=== PATIENT | male | born 1955 | race Caucasian/White ===

== ENCOUNTER 2018-10-15 12:04 | Inpatient (IN) ==
[2018-10-15 12:52] LABS: HEMATOCRIT 46.8 % (42.0-52.0); HEMOGLOBIN 14.9 g/dL (14.0-18.0); MCH 30.4 PG (27-31); MCHC 31.8 g/dL (33-37); MCV 95.5 FL (81-99); MPV 13.3 FL (7.4-10.4); RBC 4.9 XMIL (4.7-6.1); WBC 13.5 X1000 (4.8-10.8)
[2018-10-15 12:56] LABS: BILIRUBIN URINE NEGATIVE (NEGATIVE); BLOOD URINE TRACE (NEGATIVE); COLOR STRAW; GLUCOSE URINE >1000 mg/dL (NEGATIVE); KETONE URINE NEGATIVE (NEGATIVE); LEUKOCYTES URINE NEGATIVE (NEGATIVE); NITRITE URINE NEGATIVE (NEGATIVE); PROTEIN URINE NEGATIVE (NEGATIVE); SP GRAVITY URINE 1.029; TURBIDITY URINE CLEAR (CLEAR); URINE SOURCE CLEAN CATCH; UROBILINOGEN URINE NORMAL (NORMAL)
[2018-10-15 12:57] LABS: UR EPITHELIAL CELLS <10 /HPF (<10); URINE BACTERIA NEGATIVE /HPF; URINE RBC <10 /HPF (<10); URINE WBC <10 /HPF (<10)
[2018-10-15 13:01] LABS: ACETONE SERUM NEGATIVE (NEGATIVE)
[2018-10-15] MEDS ORDERED: NS 1,000 ML IV ONE ×2 (13:05→13:57)
[2018-10-15 13:07] LABS: UR AMPHETAMINES QUAL NONE DETECTED (NONE DETECT); UR BARBITUATES QUAL NONE DETECTED (NONE DETECT); UR BENZODIAZEPIN QUAL NONE DETECTED (NONE DETECT); UR CANNABINOIDS QUAL NONE DETECTED (NONE DETECT); UR COCAINE QUAL NONE DETECTED (NONE DETECT); UR METHADONE QUAL NONE DETECTED (NONE DETECT); UR OPIATES QUAL NONE DETECTED (NONE DETECT); UR OXYCODONE QUAL NONE DETECTED (NONE DETECT); UR PCP QUAL NONE DETECTED (NONE DETECT)
[2018-10-15 13:25] LABS: BE -3.7 mmoll (-2.0-2.0); BLOOD TYPE VENOUS; HCO3-(ACT) 21.4 mmoll (22-27); PCO2(98.6) 47 mmHg (40-60); PO2(98.6) 41 mmHg (30-55); SAMPLE BLOOD; SAO2 78.7 % (40.0-85.0)
[2018-10-15 13:26] LABS: MAGNESIUM 1.7 mg/dL (1.5-2.7); PHOSPHORUS 3.4 mg/dL (2.7-4.5)
[2018-10-15 13:33] LABS: AGAP 16; ALB/GLOB RATIO 1.8; ALBUMIN 4.5 g/dL (3.5-5.0); ALKALINE PHOSPHATASE 72 U/L (32-122); BUN 56 mg/dL (8-22); CALCIUM 10.2 mg/dL (8.8-10.2); CHLORIDE 87 mmol/L (98-107); CK PROFILE 469 U/L (24-204); COSMO 325; CREATININE 2.5 mg/dL (0.7-1.2); ESTIMATED GFR 26; GOT 22 U/L (10-34); GPT 30 U/L (10-44); MAGNESIUM 1.8 mg/dL (1.5-2.7); PHOSPHORUS 3.4 mg/dL (2.7-4.5); SODIUM 125 mmol/L (136-145); TCO2 22 mmol/L (25-35); TOTAL BILIRUBIN 0.68 mg/dL (0.20-1.00)
[2018-10-15 13:39] LABS: POTASSIUM 6.8 mmol/L (3.5-5.1)
[2018-10-15 13:40] LABS: GLUCOSE > 1500 mg/dL (70-104)
[2018-10-15] MEDS ORDERED: HUMULIN R IV ONE ×2 (13:56→16:15)
[2018-10-15 14:00] LABS: CK INDEX 1.7 (0.0-2.5); CK-MB 7.74 ng/mL (0.0-5.0)
--- NOTE | 2018-10-15 14:14 | PROVIDER DOCUMENTATION ---
This chart was entered by Mayela Lane Scribe, acting as scribe for Anna Rothman MD. HPI-General Adult - General Chief Complaint: DKA ALERT Stated Complaint: BLOOD SUGAR HIGH Time Seen by Provider: 10/15/18 12:11 Source: patient Allergies/Adverse Reactions: Patient Allergies Allergy/AdvReac Type Severity Reaction Status Date / Time No Known Allergies Allergy Verified 08/03/12 09:20 Home Medications: Home Medication List Medication Instructions Recorded Confirmed Last Taken Type Calcium Citrate/Vitamin D 1 each PO DAILY 08/03/12 08/03/12 08/03/12 History [Citracal + D] Docosahexanoic Acid/Epa [Fish Oil 1 each PO QAM 08/03/12 08/03/12 08/03/12 History Softgel] Folic Acid 0.4 mg PO DAILY 08/03/12 08/03/12 08/03/12 History Glucosamine 500 mg PO QAM 08/03/12 08/03/12 08/03/12 History Atorvastatin Calcium [Lipitor] 80 mg PO DAILY #0 tablet 08/04/12 Unknown Rx Clopidogrel [Plavix] 75 mg PO DAILY #0 tablet 08/04/12 Unknown Rx - History of Present Illness -Gen Adult Nature of Presenting Problems: Patient is a 63 year old male who presents with increase in thirst, nausea, v omiting and weakness. Patient states seeing PCP this morning and was informed his blood sugar was greater than 1000. Denies history of diabetes. Location of Pain/Injury: reports: none Pain Radiation: reports: no radiation Quality of Pain: reports: none Severity: reports: mild Onset/Duration: reports: gradual Timing: reports: still present, getting worse Context/Activities at Onset: reports: light activity Modifying Factors: improves with: nothing Associated Symptoms: reports: nausea, vomiting, weakness, other (increase in thirst) Similar Symptoms Previously?: Yes Recently seen or treated by another doctor?: No Review of Systems - Adult - REVIEW OF SYSTEMS - ADULT Constitutional: reports: no symptoms reported. denies: chills, fever, fatique Eyes: reports: no symptoms reported Ears, Nose, Mouth & Throat: reports: no symptoms reported Cardiovascular: reports: no symptoms reported Respiratory: reports: no symptoms reported Gastrointestinal: reports: see HPI, nausea, vomiting. denies: abdominal pain, diarrhea Genitourinary: reports: no symptoms reported Musculoskeletal: reports: see HPI, muscle weakness. denies: back pain, muscle aches, neck pain Integumentary: reports: no symptoms reported Neurological: reports: no symptoms reported Psychiatric: reports: no symptoms reported Endocrine: reports: see HPI, increased thirst. denies: change in skin pigment, polyuria Hematologic/Lymphatic: reports: no symptoms reported Allergic/Immunologic: reports: no symptoms reported All Other Systems: Reviewed and Negative Past History - Adult - PAST MEDICAL HISTORY-ADULT Review of Records: reports: Old Records Reviewed, Nursing Assessment Review, Medications Reviewed, Social history reviewed & non-contributory. Major Childhood Illnesses: reports: denies history Cardiovascular: reports: HTN, hyperlipidemia, [place] Respiratory: reports: denies history Gastrointestinal: reports: denies history Obstetrical/Gynecological: reports: denies history Genitourinary: reports: denies history Musculoskeletal: reports: denies history Neurological: reports: denies history Psychiatric: reports: denies history Endocrine/Immune: reports: denies history Other Conditions: reports: denies history - PRIOR SURGERIES/PROCEDURES Surgical/Procedure History: reports: reviewed, not pertinent, cardiac stent - IMMUNIZATION STATUS Childhood Immunizations: See Nurse Assessment Flu Vaccine: See Nurse Assessment - FAMILY HISTORY Family History: reviewed, not pertinent - SOCIAL HISTORY Smoking: denies Substance Use: denies Living Situation: family Physical Exam-General - PHYSICAL EXAM-ADULT Initial Vital Signs Reviewed: Yes - CONSTITUTIONAL General Appearance: alert, no apparent distress. negative: lethargic, slow to respond - HEAD, EARS, NOSE, MOUTH & THROAT HENMT: other (dry mucous membranes). negative: angioedema, hearing deficit - RESPIRATORY Respiratory: chest non-tender, lungs clear, normal breath sounds. negative: crackles, stridor, wheezing - CARDIOVASCULAR Cardiovascular: normal peripheral pulses, regular rate, rhythm. negative: tachycardia, systolic murmur - GASTROINTESTINAL (ABDOMEN) Abdominal Exam: normal bowel sounds, non tender, soft. negative: guarding, rebound - MUSCULOSKELETAL Extremity: non-tender, normal inspection. negative: deformity, erythema, swelling - SKIN Integumentary: normal color, normal turgor, warm/dry. negative: cyanosis, ecchymosis, erythema, jaundice - NEUROLOGIC Neurologic: grossly normal. negative: aphasia, facial droop - PSYCHIATRIC Psych/Mental Status: normal mood/affect, oriented x 3. negative: anxious, paranoid Progress - PLAN OF CARE/RESULTS Progress/Plan/Lab Results: Vital Signs - 8 hr 10/15/18 12:05 Temperature 98.6 F Pulse Rate 83 Respiratory Rate 20 Blood Pressure 144/84 O2 Sat by Pulse Oximetry 93 L Laboratory Results - last 24 hr 10/15/18 10/15/18 10/15/18 12:27 12:27 12:27 WBC 13.50 H RBC 4.90 Hgb 14.9 Hct 46.8 MCV 95.5 MCH 30.4 MCHC 31.8 L RDW Std Deviation 12.0 Plt Count 302 MPV 13.3 H Troponin T Plasma Lactate 3.2 H Urine Source Urine Color Urine Turbidity Urine pH Ur Specific [place] Urine Protein Ur Glucose (Stick) Ur Ketones (Stick) Urine Blood Urine Nitrite Urine Bilirubin Urobilinogen Dipstick Urine Leukocytes Urine WBC (Auto) Urine RBC (Auto) U Epithel Cells (Auto) Urine Bacteria (Auto) Urine Opiates Screen Ur Oxycodone Screen Ur Methadone, Qual Ur Barbiturates Screen Ur Phencyclidine Scrn Ur Amphetamines Screen U Benzodiazepines Scrn Urine Cocaine Screen U Cannabinoids Screen Acetone Level NEGATIVE 10/15/18 10/15/18 10/15/18 12:27 12:51 12:51 WBC RBC Hgb Hct MCV MCH MCHC RDW Std Deviation Plt Count MPV Troponin T 0.026 Plasma Lactate Urine Source CLEAN CATCH Urine Color STRAW Urine Turbidity CLEAR Urine pH 5.0 Ur Specific [place] 1.029 Urine Protein NEGATIVE Ur Glucose (Stick) >1000 A Ur Ketones (Stick) NEGATIVE Urine Blood TRACE A Urine Nitrite NEGATIVE Urine Bilirubin NEGATIVE Urobilinogen Dipstick NORMAL Urine Leukocytes NEGATIVE Urine WBC (Auto) <10 Urine RBC (Auto) <10 U Epithel Cells (Auto) <10 Urine Bacteria (Auto) NEGATIVE Urine Opiates Screen NONE DETECTED Ur Oxycodone Screen NONE DETECTED Ur Methadone, Qual NONE DETECTED Ur Barbiturates Screen NONE DETECTED Ur Phencyclidine Scrn NONE DETECTED Ur Amphetamines Screen NONE DETECTED U Benzodiazepines Scrn NONE DETECTED Urine Cocaine Screen NONE DETECTED U Cannabinoids Screen NONE DETECTED Acetone Level Orders Category Date Time Status Cardiac Monitoring DIRECTED Care 10/15/18 12:14 Active FSBS/Accucheck Result Q1H Care 10/15/18 12:14 Active If symptomatic Hypoglycemia As Ordered Care 10/15/18 12:14 Active Notify physician if: ORDERED Care 10/15/18 12:14 Active ACETONE SERUM [CHEM] Stat Lab 10/15/18 12:27 Results BASIC METABOLIC PANEL [CHEM] Lab 10/15/18 12:40 Ordered BASIC METABOLIC PANEL [CHEM] Q4H Lab 10/15/18 12:27 Results CBC WITH NO DIFF [HEME] Stat Lab 10/15/18 12:27 Completed CK PROFILE [SP CHEM] Stat Lab 10/15/18 12:27 Results COMPREHENSIVE METABOLIC PANEL [CHEM] Stat Lab 10/15/18 12:27 Results LACTATE, PLASMA [CHEM] Stat Lab 10/15/18 12:27 Completed MAGNESIUM [CHEM] Lab 10/15/18 12:40 Ordered MAGNESIUM [CHEM] Q4H Lab 10/15/18 12:27 Results MAGNESIUM [CHEM] Stat Lab 10/15/18 12:27 Received PHOSPHORUS [CHEM] Lab 10/15/18 12:27 Received PHOSPHORUS [CHEM] Lab 10/15/18 12:40 Ordered PHOSPHORUS [CHEM] Stat Lab 10/15/18 12:27 Results TROPONIN T Stat Lab 10/15/18 12:27 Completed URINALYSIS W/POSS RFLX CULT [URINALYSIS] Stat Lab 10/15/18 12:51 Completed URINE DRUG SCREEN Stat Lab 10/15/18 12:51 Completed VENOUS BLOOD GAS [RESP] Stat Lab 10/15/18 13:05 Uncollected 0.9% Sodium Chloride Inj [Ns] 1,000 ml Med 10/15/18 13:05 Active IV 999 mls/hr Result Diagrams: 10/15/18 12:27 10/15/18 12:27 - EKG 1 Time of EKG reading by physician:: 12:32 EKG Read and Signed by:: Anna Rothman EKG Interpretation (*Must complete 3 of following elements*): Abnormal Rate: 85 Rhythm: normal sinus rhythm [place]: normal QRS: LVH (with repolarization abnormality.) DC Interval: normal Comments: cannot rule out septal infarct, age undetermined - CONSULTS/PCP/HOSPITALIST Notification #1 *Consult/PCP/Hospitalist*: MAYANK Fernandez for Hospitalist Time Discussed: 14:07 Reason/Comments: Dr. Rothman consulted with Rebecca about patient. Consult Disposition: Will see in ED, Admit Departure - Departure Date of Disposition Decision: 10/15/18 Time of Disposition Decision: 14:07 DIAGNOSIS: Diabetic hyperosmolar non-ketotic state Disposition: ADMITTED INPATIENT 09 Certified Medical Emergency: Emergent Condition: Stable Referrals and Follow-Ups: Keo Worthington MD [Primary Care Provider] - - Critical Care Note This patient required my direct & personal management of CC.: Yes Total Time (mins): 31 Critical Care Statement: This patient required my direct personal management to treat or rule out processes, the absence of which, could potentiallly result in sudden, clinically significant life or limb threatening deterioration. Attestation - Physician/ CONNOR Attestation The physician spent face to face time with patient:: Yes Advanced Practice Provider documentation review:: Supervising physician onsite and consulted in the evaluation and care of this patient. The physician did have a face to face encounter with the patient. This chart was documented by the indicated scribe, (Mayela Lane Scribe) and accu rately reflects the services I performed and decisions made by me, Anna Rothman MD, as attested by the provider's signature.
--- NOTE | 2018-10-15 14:17 | EKG Report ---
Test Performed on : 10/15/2018 12:32:45 PM Test Reason : ED. NO EKG ORDER FOR MUSE Blood Pressure : / mmHG Vent. Rate : 085 BPM Atrial Rate : 085 BPM P-R Int : 164 ms QRS Dur : 090 ms QT Int : 366 ms P-R-T Axes : 036 -07 067 degrees QTc Int : 435 ms Normal sinus rhythm. Left ventricular hypertrophy with repolarization abnormality Cannot rule out Septal infarct (cited on or before 03-AUG-2012) Abnormal ECG When compared with ECG of 03-AUG-2012 09:14, No significant change was found Unconfirmed Result
[2018-10-15] MEDS ORDERED: ROCEPHIN IV ONE (14:29)
[2018-10-15] MEDS ORDERED: ZOFRAN ODT PO PRN (15:29)
[2018-10-15] MEDS ORDERED: NS 50 ML ONE (15:54)
[2018-10-15] MEDS ORDERED: HUMULIN R 100 UNIT in NS 100 ML IV SCH (16:00)
[2018-10-15 16:08] LABS: CALCIUM 9.7 mg/dL (8.8-10.2); CREATININE 2.5 mg/dL (0.7-1.2); MAGNESIUM 1.6 mg/dL (1.5-2.7); POTASSIUM 6.5 mmol/L (3.5-5.1)
[2018-10-15] MEDS ORDERED: POTASSIUM CHLORIDE 20% LIQUID PO PRN (16:15)
[2018-10-15] MEDS ORDERED: HUMULIN R 100 UNIT in NS 99 ML IV SCH ×2 (16:15→19:00)
[2018-10-15] MEDS ORDERED: SODIUM BICARBONATE 8.4% 100 MEQ in STERILE WATER INJ. 500 ML IV PRN (16:15)
[2018-10-15] MEDS ORDERED: ZOFRAN IV PRN (16:15)
[2018-10-15] MEDS ORDERED: D50W SYRINGE IV PRN (16:15)
[2018-10-15] MEDS ORDERED: SODIUM PHOSPHATE 30 MMOL in D5W 250 ML IV PRN (16:15)
[2018-10-15] MEDS ORDERED: POTASSIUM CHLORIDE 10% LIQUID PO PRN (16:15)
[2018-10-15] MEDS ORDERED: POTASSIUM CHLORIDE 40 MEQ/SWI 40 MEQ/100 ML IVPB IV PRN (16:15)
[2018-10-15] MEDS ORDERED: POTASSIUM CHLORIDE 20 MEQ/SWI 20 MEQ/100 ML IVPB IV PRN (16:15)
[2018-10-15] MEDS ORDERED: ZOFRAN PO PRN (16:15)
[2018-10-15] MEDS: NS 1,000 ML IV SCH ×4 (16:35→18:26)
[2018-10-15] MEDS: D5 NS 1,000 ML IV SCH (17:40)
--- NOTE | 2018-10-15 18:21 | HISTORY AND PHYSICAL ---
CHIEF COMPLAINT: My blood sugar is high. HISTORY OF PRESENT ILLNESS: This is a 63-year-old gentleman with a history of hypertension, high cholesterol and diabetes mellitus. He presented to the emergency room after being evaluated his primary care physician Dr. Worthington's office being found to have a blood sugar greater than 1000. Patient presented for evaluation to his PCP complaining of 10 days of nausea, vomiting and generalized weakness. He reports having rosuvastatin increased from 20 to 40 mg 12 days ago and stated symptoms started within 48 hours of increasing the dose. Patient denies any prior episodes of DKA or [*] stating that blood sugars have averaged in the 130s primarily. He states his hemoglobin A1c he feels is around 6. On arrival to the emergency room he was found to have a blood sugar greater than 1500 with potassium 6.8, sodium 125. He does have a CO2 of 22. He was acetone negative. PAST MEDICAL HISTORY: 1. Diabetes mellitus type 2. 2. Hypertension. 3. Coronary artery disease status post stent x1. 4. High cholesterol. PAST SURGICAL HISTORY: He denied. SOCIAL HISTORY: He denies alcohol, tobacco or illicit drug use. ALLERGIES: No known drug allergies. HOME MEDICATIONS: List be obtained by the nursing staff and once verified will be restarted as appropriate. REVIEW OF SYSTEMS: Discussed patient with pertinent positives being generalized weakness, nausea, vomiting, increased thirst. He denies any syncope, dizziness, any chest pain, any palpitations, any black or bloody vomitus or stools, any hematuria, dysuria, urgency. PHYSICAL EXAMINATION: GENERAL: This is a 63-year-old gentleman who is sitting up in the bed in no distress. VITAL SIGNS: Blood pressure is 111/93 with a heart rate of 92, respirations 19, temperature is 98.6, O2 saturation 95-97% on room air. HEENT: Pupils are equal, round, react to light. EOMs are intact. Sclerae anicteric. Head is normocephalic, atraumatic. Mucous membranes are dry. NECK: Supple, trachea midline. CARDIOVASCULAR: Regular rate and rhythm. S1 and S2 appreciated. He has slight pretibial edema bilateral, calves nontender bilateral with peripheral pulses palpable x4 extremities. PULMONARY: Breath sounds are clear with no increased work of breathing noted. Chest rise and fall symmetric respiration. Chest wall is nontender to palpation. GASTROINTESTINAL: Abdomen soft, nontender, nondistended. Bowel sounds in all 4 quadrants. GENITOURINARY: He has no CVA nor suprapubic tenderness. NEUROLOGIC: He is alert, oriented x3. SKIN: Warm and dry. LABS: WBC is 125 with potassium 6.8, CO2 of 22, anion gap of 16 with a BUN of 56, creatinine 2.5, glucose greater than 1500, magnesium is 1.8, WBC is 13.5 with hemoglobin 14.9, hematocrit 46.8, platelets of 302,000. Urine drug screen reveals none detected with acetone negative. Urinalysis is essentially negative. ASSESSMENT AND PLAN: 1. Diabetic hyperosmolar nonketotic state. 2. Diabetes mellitus type 2. 3. Hypertension. 4. High cholesterol. 5. History of coronary artery disease status post percutaneous coronary intervention. 6. Hyponatremia. 7. Hyperkalemia. 8. Acute kidney injury. PLAN: The patient will be transferred to [facility] ICU. He will be placed on DKA protocol. Will hold his home medications at present. Will start diabetic diet as tolerated. We will identify his home medications and continue these as appropriate. Labs per DKA protocol, will recheck a CBC in the morning with a.m. labs. Further treatments pending hospital course. Dictated by MAYANK Kumar for Dany Baez MD cc: MAYANK Kumar
[2018-10-15] MEDS ORDERED: FIBERCON PO SCH (21:00)
[2018-10-15 21:04] LABS: AGAP 17; CHLORIDE 100 mmol/L (98-107); POTASSIUM 5.2 mmol/L (3.5-5.1); SODIUM 135 mmol/L (136-145); TCO2 19 mmol/L (25-35)
[2018-10-15 21:05] LABS: BUN 49 mg/dL (8-22); CALCIUM 9.1 mg/dL (8.8-10.2); COSMO 324; CREATININE 2.1 mg/dL (0.7-1.2); MAGNESIUM 1.6 mg/dL (1.5-2.7); PHOSPHORUS 1.9 mg/dL (2.7-4.5)
[2018-10-15 21:06] LABS: GLUCOSE 844 mg/dL (70-104)
[2018-10-15] MEDS: FIBERCON PO SCH (21:26)
[2018-10-15] MEDS: COZAAR PO SCH (21:26)
[2018-10-15] MEDS: LOPRESSOR PO SCH (21:26)
[2018-10-16 00:30] LABS: CALCIUM 9.2 mg/dL (8.8-10.2); CREATININE 1.9 mg/dL (0.7-1.2); MAGNESIUM 1.6 mg/dL (1.5-2.7); PHOSPHORUS 2.4 mg/dL (2.7-4.5)
[2018-10-16] MEDS ORDERED: NS 100 ML ONE (00:55)
[2018-10-16] MEDS ORDERED: HUMULIN R (PARKWAY) ONE (00:57)
[2018-10-16] MEDS: MAGNESIUM SULFATE 2 GM/S.W.I. 2 GM/50 ML IVPB IV PRN ×2 (02:38→06:04)
[2018-10-16] MEDS: NS 1,000 ML IV SCH (02:38)
[2018-10-16 05:16] LABS: BASO# 0.05 X1000 (0.0-0.2); BASO% 0.5 % (0.0-0.8); EOS# 0.29 X1000 (0.0-0.7); EOS% 2.7 % (0.0-10.0); HEMATOCRIT 29.2 % (42.0-52.0); IMM GRAN# 0.03 X1000 (0.0-0.04); IMM GRAN% 0.3 % (0.0-0.5); LYMPH# 2.61 X1000 (1.2-3.4); LYMPH% 23.9 % (20.5-51.1); MCH 30.6 PG (27-31); MCHC 34.9 g/dL (33-37); MCV 87.7 FL (81-99); MONO# 0.91 X1000 (0.11-0.59); MONO% 8.3 % (1.7-9.3); MPV 11.5 FL (7.4-10.4); NEUT# 7.04 X1000 (1.4-6.5); NEUT% 64.3 % (42.2-75.2); PLT 193 X1000 (130-400); RBC 3.33 XMIL (4.7-6.1); RDW 11.6 % (11.5-14.5); WBC 10.93 X1000 (4.8-10.8)
[2018-10-16 05:21] LABS: HEMOGLOBIN 10.2 g/dL (14.0-18.0)
[2018-10-16] MEDS: D5 NS 1,000 ML IV SCH ×2 (05:34→12:23)
[2018-10-16 05:37] LABS: CALCIUM 7.2 mg/dL (8.8-10.2); CREATININE 1.4 mg/dL (0.7-1.2); MAGNESIUM 1.6 mg/dL (1.5-2.7); PHOSPHORUS 2.5 mg/dL (2.7-4.5); POTASSIUM 3.2 mmol/L (3.5-5.1)
[2018-10-16 07:23] LABS: HEMOGLOBIN A1C 12.8 % (4.8-6.0)
[2018-10-16] MEDS: FIBERCON PO SCH ×2 (09:42→22:10)
[2018-10-16] MEDS: PLAVIX PO SCH (09:42)
[2018-10-16] MEDS: COZAAR PO SCH ×2 (09:42→22:10)
[2018-10-16] MEDS: LOPRESSOR PO SCH ×2 (09:42→22:10)
[2018-10-16] MEDS: HUMALOG (PARKWAY) SUBQ SCH ×5 (12:27→22:10)
[2018-10-16] MEDS ORDERED: MAGNESIUM SULFATE 2 GM/S.W.I. 2 GM/50 ML IVPB IV ONE (15:22)
[2018-10-16] MEDS ORDERED: KLOR-CON PO ONE (15:23)
[2018-10-16] MEDS: GLUCOPHAGE XR PO SCH (18:12)
[2018-10-16 18:53] LABS: CALCIUM 8.9 mg/dL (8.8-10.2); CREATININE 1.9 mg/dL (0.7-1.2); POTASSIUM 5.2 mmol/L (3.5-5.1)
--- NOTE | 2018-10-16 23:28 | PROGRESS NOTE ---
DATE: 10/16/2018 SUBJECTIVE: Patient notes he feels tremendously better. Denies any nausea, vomiting. Denies any abdominal pain. Denies any fevers or chills. OBJECTIVE: Vital signs: Temp 98, pulse 60, respiratory 18, BP 97/61. General: The patient is very pleasant to talk with. He is in no distress. HEENT: Normocephalic. Neck: Supple. Cardiovascular: Regular rate. Chest: Clear. Abdomen: Soft. Extremities: Moves all extremities. ASSESSMENT: 1. Diabetic hyperosmolar nonketotic state, resolved. 2. Type 2 diabetes with likely poor home control, as he is only on metformin at home and his blood sugars were 1300. It would be unlikely that metformin alone will be enough to control his blood sugar. 3. Hypertension. 4. High cholesterol. 5. Hyponatremia, resolved. Currently with hypernatremia. 6. Acute kidney injury, resolved. PLAN: At this point, we will stop his insulin drip. We will not restart metformin immediately as concern that may cause him to have nausea and not be able to eat. We will place him on sliding scale insulin. We will restart his metformin as he is starting to eat. We will follow his blood sugars. We will move him to the floor. Further orders as needed. cc: Burt Haider MD
[2018-10-17] MEDS: HUMALOG (PARKWAY) SUBQ SCH ×2 (02:28→06:19)
[2018-10-17 07:19] LABS: BASO# 0.05 X1000 (0.0-0.2); BASO% 0.5 % (0.0-0.8); EOS% 2.8 % (0.0-10.0); HEMATOCRIT 36.7 % (42.0-52.0); HEMOGLOBIN 12.8 g/dL (14.0-18.0); IMM GRAN# 0.05 X1000 (0.0-0.04); IMM GRAN% 0.5 % (0.0-0.5); LYMPH# 3.56 X1000 (1.2-3.4); LYMPH% 32.7 % (20.5-51.1); MCH 30.5 PG (27-31); MCHC 34.9 g/dL (33-37); MCV 87.4 FL (81-99); MONO# 0.63 X1000 (0.11-0.59); MONO% 5.8 % (1.7-9.3); MPV 12.3 FL (7.4-10.4); NEUT# 6.29 X1000 (1.4-6.5); NEUT% 57.7 % (42.2-75.2); PLT 196 X1000 (130-400); RDW 11.9 % (11.5-14.5); WBC 10.88 X1000 (4.8-10.8)
[2018-10-17 08:06] VITALS: BP 116/74
[2018-10-17 08:16] LABS: ALBUMIN 3.4 g/dL (3.5-5.0); CALCIUM 8.3 mg/dL (8.8-10.2); CREATININE 1.4 mg/dL (0.7-1.2); MAGNESIUM 1.9 mg/dL (1.5-2.7); POTASSIUM 4.7 mmol/L (3.5-5.1); TOTAL BILIRUBIN 0.4 mg/dL (0.20-1.00); TOTAL PROTEIN 5.8 g/dL (6.3-8.3)
[2018-10-17 08:29] LABS: HEMOGLOBIN A1C 12.3 % (4.8-6.0)
[2018-10-17] MEDS ORDERED: COZAAR PO SCH (09:00)
[2018-10-17] MEDS ORDERED: JANUVIA PO SCH (09:00)
[2018-10-17] MEDS: PLAVIX PO SCH (09:35)
[2018-10-17] MEDS: LOPRESSOR PO SCH (09:35)
[2018-10-17] MEDS: FIBERCON PO SCH (09:35)
[2018-10-17] MEDS: GLUCOPHAGE XR PO SCH (09:35)
--- NOTE | 2018-10-17 13:25 | DISCHARGE SUMMARY ---
ADMISSION DATE: 10/15/2018 DISCHARGE DATE: 10/17/2018 CONSULTATIONS: Dietitian. PERTINENT PROCEDURES: EKG, normal sinus rhythm with LVH, 85 beats per minute. QTc was 435. DISCHARGE DIAGNOSIS: 1. Diabetic hyperosmolar non ketotic state, resolved. 2. Type 2 diabetes with likely poor home control. His hemoglobin A1c is 12.8. He was only on metformin at home and his blood sugars were 1300. We did add Januvia to his regimen. He will have a dietitian consult before discharge. 3. Hypertension. Continue home medications. 4. Hyperlipidemia. Continue home medications. 5. Hyponatremia, resolved. 6. Hypernatremia, resolved. 7. Acute kidney injury, resolved. HOSPITAL COURSE: Briefly, Mr. Diaz is a 63-year-old male with a history of hypertension, hypercholesterol, and diabetes mellitus type 2 on metformin only, who presented to the ED after he was evaluated by his PCP, Dr. Yang, and was found to have a blood sugar greater than 1000. He presented to his PCP with 10 days of nausea, vomiting, and generalized weakness. He did report the only medication change he had was his statin that was increased from 20 to 40 and he feels like that is when the symptoms had started. He denied any episodes of DKA and stated that his blood sugars average around 130s primarily. His hemoglobin A1c was 12.8. Patient reported it was 6 on arrival to the ED. He was found to have blood sugar greater than 1500 with a potassium of 6.8 and a sodium of 125 and a CO2 of 22. His acetone was negative. He was admitted for diabetic hyperosmolar nonketotic state. He was initiated on an insulin drip per the DKA protocol, aggressively hydrated, and adjusted his electrolytes per protocol. The next day, he was off his insulin drip and on sliding scale. Tolerating a diet. No more nausea and vomiting. He was moved out to the floor. He has remained stable throughout his hospital course and will be discharged home today after a dietitian consult. VITAL SIGNS: At time of discharge, temperature is 97.8 degrees, heart rate 79, respirations 20, blood pressure 116/74, O2 is 99% on room air. DISCHARGE DIET: Diabetic diet. DISCHARGE MEDICATIONS: 1. Cozaar 50 mg p.o. b.i.d. 2. Fenofibrate 160 mg p.o. daily. 3. Fish oil 1 cap p.o. 4 times a day. 4. Glucosamine 2000 mg p.o. q.a.m. 5. Metamucil 2 tablets p.o. b.i.d. 6. Metoprolol 50 mg p.o. b.i.d. 7. Zofran ODT 1 tab p.o. q. 6 hours p.r.n. nausea. 8. Glucophage XR 500 mg p.o. b.i.d. 9. Januvia 100 mg p.o. daily. 10. Plavix 75 mg p.o. daily. 11. Rosuvastatin half tab p.o. daily. FOLLOWUP: Mr. Diaz is being discharged back home with self care. He is to continue on a diabetic diet per the dietitian. He is to check his blood sugars as prescribed and to take all medications as prescribed. He can follow up with his PCP, Dr. Yang, in the next 1 to 2 weeks. He can return to the ED or call 911 for any worsening of symptoms. Dictated by MAYANK Pittman for Burt Haider MD cc: MD Xenia Veliz
--- NOTE | 2018-10-18 17:57 | DISCHARGE SUMMARY ---
ADMISSION DATE: 10/15/2018 DISCHARGE DATE: 10/17/2018 ADDENDUM: Patient seen and examined by myself. Full note dictated and discussed with nurse practitioner. Patient presented to the hospital with markedly elevated blood sugar at 1300. Thankfully, this continued to improve. He is currently down around 300 or 400. His A1c is 12.8. Apparently, he has very poor home control. We will add Januvia to his blood sugar medication. Nutrition will see him prior to discharge. Discussed with him that he needs to follow up with his primary care in the next 1 week for further changes in his medications. cc: Burt Haider MD
--- NOTE | 2018-10-19 03:56 | DISCHARGE SUMMARY ---
ADMISSION DATE: 10/15/2018 DISCHARGE DATE: 10/17/2018 ADDENDUM: Patient seen and examined by myself. Full note dictated and discussed with nurse practitioner. Patient presented to the hospital with markedly elevated blood sugars at 1300. His A1c ended up being elevated at 12.5. The patient had a very uneventful hospital course. Thankfully, improved very quickly. He was initially placed on IV fluids and insulin. Then he was stopped on IV drip and used sliding scale insulin as well as Glucophage. Given his A1c was 12, he certainly will need more than Glucophage. Prescription was written for Januvia. However, apparently after going to the pharmacy that was unaffordable, so we switched him to glipizide until he can follow up with his primary care to find better medications than sulfonylureas. cc: Burt Haider MD
== END 2018-10-17 10:10 | disposition home or self-care (01) | DRG 638 ==
LOC: ED 12:04 → P.ICU 12:05 → P.MEDSURG 10-16 14:47
PROVIDERS: ATTEND Family Medicine
CPT/HCPCS: 80048; 80053; 80101; 80301; 80307; 80324; 80345; 80346; 80353; 80358; 80361; 80365; 81001; 82009; 82550; 82553; 82805; 82948; 83036; 83605; 83735; 83992; 84100; 84132; 84484; 85025; 85027; 87040; 93005; 96361; 96374; 99285; 99291; A9270; G0431; G0434; G0479; G0480; J0696; J1815; J3475; J7030; XXXXX